=== PATIENT | female | born 1955 | race Caucasian/White ===

== ENCOUNTER 2019-09-04 15:34 | Emergency (ER) | payer MEDICARE, MEDICAID ==
[~2019-09-04] VITALS: Ht 154.9 cm; Wt 74.4 kg
--- NOTE | 2019-09-04 15:38 | NUR ---
""Fell face forward 1wk ago Been having SINGH?Dizzy/nausea since" PT AAOX4, -SOB, NAD NOTED, VSS ,PENDING MD DOWELL
[2019-09-04] MEDS ORDERED: HYDROCODONE/APAP 5/325MG 1 EACH TABLET PO ONE (16:00)
[2019-09-04] MEDS ORDERED: HYDROCODONE/APAP 5/325MG 1 EACH TABLET ONE (16:33)
[2019-09-04 17:00] VITALS: BP 149/80
--- NOTE | 2019-09-04 17:47 | NUR ---
Patient discharged to home in stable condition. Written and verbal after care instructions given. Patient verbalizes understanding of instruction. IV removed. Catheter intact and site benign. Pressure and 4x4 applied to site. No bleeding noted.
== END 2019-09-04 17:50 | disposition home or self-care (01) ==
LOC: ER 15:40
DX: S06.0X0A Concussion without loss of consciousness, initial encounter (principal); S02.2XXA Fracture of nasal bones, initial encounter for closed fracture; S33.5XXA Sprain of ligaments of lumbar spine, initial encounter; S93.492A Sprain of other ligament of left ankle, initial encounter; I10 Essential (primary) hypertension; Z88.1 Allergy status to other antibiotic agents; Z79.899 Other long term (current) drug therapy; W01.0XXA Fall on same level from slipping, tripping and stumbling without subsequent striking against object, initial encounter; Y93.89 Activity, other specified; Y92.89 Other specified places as the place of occurrence of the external cause; Y99.8 Other external cause status
CPT/HCPCS: 70450-TC; 70486-TC; 72131-TC; 73564-TC; 73610-TC